=== PATIENT | male | born 1945 | race Caucasian/White ===

== ENCOUNTER 2018-08-07 16:21 | Inpatient (IN) | payer MEDICARE ==
[~2018-08-07 16:21] MED LIST: Iopamidol 370 76% 100 ML VIAL ONE; Iopamidol 370 76% 50 ML VIAL FS ONE
[2018-08-07] MEDS ORDERED: TICAGRELOR 90 MG TABLET PO SCH (19:04)
[2018-08-07] MEDS ORDERED: Morphine 4 MG/ML VIAL SLOW IVP PRN ×2 (19:04→19:11)
[2018-08-07] MEDS ORDERED: Nitroglycerin 0.4 MG TAB (25 Tab Bottle) SL PRN (19:04)
[2018-08-07] MEDS: Sodium Chloride 0.9% 1,000 ML IV SCH (19:33)
[2018-08-07 19:59] VITALS: BMI 23.8
[2018-08-07] MEDS ORDERED: Carvedilol 3.125 MG TAB PO SCH (21:00)
[2018-08-07] MEDS: Acetaminophen 325 MG TAB PO PRN (22:29)
[2018-08-07] MEDS: TICAGRELOR 90 MG TABLET PO SCH (22:29)
[2018-08-07] MEDS: Finasteride 5 MG TAB PO SCH (22:29)
[2018-08-07] MEDS: Atorvastatin Calcium 40 MG TAB PO SCH (22:30)
[2018-08-07] MEDS ORDERED: Amlodipine 5 MG TAB PO SCH (22:30)
[2018-08-07] MEDS ORDERED: Nitroglycerin 50 MG/250 ML BOT 250 ML IVPB SCH (22:30)
[2018-08-07] MEDS: Lisinopril/Hydrochlorothiazide 20 mg/12.5 mg Tablet PO SCH (22:31)
[2018-08-08] MEDS: Acetaminophen 325 MG TAB PO PRN (04:45)
[2018-08-08 05:05] LABS: #Eosinphils 0.1 thou/uL (0.0-0.7); #Lymphocytes 0.7 thou/uL (1.20-3.40); #Monocytes 0.7 thou/uL (0.11-0.59); #Neutrophils 6.1 thou/uL (1.40-6.50); %Basophils 0.3 % (0.0-1.0); %Eosinophils 1.1 % (0.0-10.0); %Lymphocytes 9.6 % (21.0-51.0); %Monocytes 9.5 % (0.0-10.0); %Neutrophils 79.5 % (42.0-75.0); Hemoglobin 12.1 g/dL (14.0-18.0); Mean Corpuscular HGB CONC 34.4 g/dL (32.0-36.0); Mean Corpuscular Hemoglobin 31.9 pg (27.0-31.0); Mean Corpuscular Volume 92.8 fL (78.0-98.0); Mean Platelet Volume 8.5 fL (7.4-10.4); Platelet Count 172 thou/uL (130-400); RBC Distribution Width 13.4 % (11.5-14.5); Red Blood Cell (RBC) Count 3.79 mill/uL (4.70-6.10); White Blood Cell (WBC) Count 7.7 thou/uL (4.8-10.8)
[2018-08-08 05:28] LABS: ALT (SGPT) 31 U/L (8-55); AST (SGOT) 100 U/L (5-34); Albumin 3.4 g/dL (3.4-4.8); Alkaline Phosphatase 69 U/L (40-150); Anion Gap 10 mmol/L (10-20); BUN (Urea Nitrogen) 19 mg/dL (8.4-25.7); Bilirubin, Total 0.5 mg/dL (0.2-1.2); Calc. Creatinine Clearance 60 mL/min (70-130); Calcium 8.8 mg/dL (7.8-10.44); Carbon Dioxide 26 mmol/L (23-31); Chloride 107 mmol/L (98-107); Estimated GFR-MDRD 68; Globulin 2.1 g/dL (2.4-3.5); Glucose 125 mg/dL (83-110); Potassium 3.4 mmol/L (3.5-5.1); Protein, Total 5.5 g/dL (5.8-8.1); Sodium 140 mmol/L (136-145)
[2018-08-08] MEDS: Carvedilol 6.25 MG TAB PO SCH ×2 (08:47→21:24)
[2018-08-08] MEDS: TICAGRELOR 90 MG TABLET PO SCH ×2 (08:48→21:24)
[2018-08-08] MEDS: Lisinopril/Hydrochlorothiazide 20 mg/12.5 mg Tablet PO SCH ×2 (08:48→21:25)
[2018-08-08] MEDS: Magnesium Oxide 400 MG TAB PO SCH (08:49)
--- NOTE | 2018-08-08 08:58 | PRG ---
DATE OF SERVICE: 08/08/2018 SUBJECTIVE: Mr. Mir is feeling better. Not having any chest pain. OBJECTIVE: VITAL SIGNS: Blood pressure is 169/84, pulse 54 and regular. LUNGS: Clear. CARDIAC: Normal S1. Normal S2. ABDOMEN: Soft and nontender. EXTREMITIES: No edema. ASSESSMENT: 1. Status post myocardial infarction involving the right coronary artery including the ostium. 2. Hypertension. 3. Paroxysmal atrial fibrillation with no recent episodes. PLAN: 1. Increase carvedilol. 2. TRI inhibitors. 3. Statin. 4. Aspirin and Brilinta. 5. We will hold off on Xarelto for now. 6. Add amlodipine as well, helps control blood pressure. Job ID: [id number]
[2018-08-08] MEDS ORDERED: Carvedilol 6.25 MG TAB PO SCH (09:00)
[2018-08-08] MEDS: Amlodipine 5 MG TAB PO SCH (09:27)
[2018-08-08 10:04] LABS: Troponin I 44.604 ng/mL (< 0.028)
[2018-08-08] MEDS: Mometasone/Formoterol 120 PUFF INHALER INH SCH ×2 (11:44→18:56)
[2018-08-08] MEDS ORDERED: Potassium Chloride 20 MEQ TAB PO SCH (12:00)
--- NOTE | 2018-08-08 12:20 | HP ---
INDICATION FOR ADMISSION: A 73-year-old gentleman with acute inferior myocardial infarction. His other diagnoses include intermittent atrial fibrillation, hypertension, benign prostatic hypertrophy, and hyperlipidemia. HISTORY OF PRESENT ILLNESS: This is a very pleasant 73-year-old gentleman, who is followed by Dr. Vicente for several years. This afternoon around 3 o'clock he started experiencing chest discomfort after he ate some English food, he went home, the pain got worse. He then presented to the emergency room. EKG showed acute inferior changes compatible with acute inferior ST-segment elevation myocardial infarction. He was then transferred to our facility. When he arrived here, he was taken immediately to the cardiac offset label rewinder. He was prepped and draped in sterile fashion. Using a radial artery approach, the patient had been on Xarelto , we were able to place a 6-Malawian introducer sheath into the right radial artery. Using a #4-Malawian JL3.5 catheter to the left main coronary artery and also into the right coronary artery, he was found to have a subtotal occlusion of a right coronary artery. Then, he underwent angioplasty and stent placement into very high-risk vessel due to calcifications and also ostial stenosis with subtotal stenosis in the first 10 mm of the right coronary artery with also a more serial stenosis of about 15 mm beyond this of about 90% and again another lesion further down in the mid right coronary artery about 50% that was not intervened upon. Overall, he tolerated the procedure relatively well. EKG did improve. We admitted him to the Intensive Care Unit. PAST MEDICAL HISTORY: As noted above for hypertension, hypercholesterolemia, intermittent atrial fibrillation. He has had some type of cancer surgery. He has benign prostatic hypertrophy. ALLERGIES: PENICILLIN. MEDICATIONS: Prior to admission include; 1. CoQ10. 2. Vitamin C. 3. Krill oil. 4. Potassium chloride. 5. Advair Diskus powder for inhalation. 6. Magnesium 200 mg two times a day. 7. Calcium. 8. Ascorbic acid. 9. Flomax 0.4 mg 24-hour capsules, one tablet half an hour following the same meal each day. 10. Centrum Silver vitamins. 11. Flonase nasal spray. 12. Glucosamine chondroitin. 13. He takes Citrucel. 14. Zinc. 15. Finasteride. 16. Nitroglycerin p.r.n. translingual. 17. Xarelto 20 mg q.p.m. 18. Atorvastatin one tablet a day, 20 mg. He also was on 40 mg tablet. 19. Verapamil 180 mg capsule once a day. 20. Lisinopril/hydrochlorothiazide 20/12.5 one b.i.d. REVIEW OF SYSTEMS: He mainly complained of the discomfort in his chest after eating, otherwise 12-point review of systems is unremarkable. He occasionally has some dizziness, recent memory loss, but he denied any pulmonary complaints, GI complaints, or complaints, otherwise except for his prostate problems. PHYSICAL EXAMINATION: VITAL SIGNS: Heart rate 65, blood pressure 142/84, and respiratory rate is about 12 to 14. HEENT: Unremarkable. CHEST: Clear to auscultation. CARDIAC: Reveals regular rate and rhythm. ABDOMEN: Unremarkable. EXTREMITIES: Show no clubbing, cyanosis, or edema. NEUROLOGIC: The patient was intact fully. Did not appear to have any focal motor deficits. LABORATORY DATA: EKG showed acute inferior myocardial infarction. Creatinine was 1.09. Hemoglobin was 13.4. Troponin I was 0.081. We will repeat these in the next couple of hours. IMPRESSION: Acute inferior myocardial infarction, ST segment elevation. The patient was taken into the cardiac offset label rewinder. He did have a successful angioplasty and stent placement for a very difficult lesion, but appeared to be doing quite well. The EKG did improve and hopefully, we will have minimal damage to the inferior wall. The vessel was slightly opened, there was still some flow down the vessel with subtotal in the proximal area. It was felt best to at least try to attempt this subtotal stenosis all the way back to the ostium to the aorta and this was performed without any obvious dissections. The patient was doing well. There was no embolization in the procedure. The patient will be admitted to the intensive care unit and further care of the patient will be by Dr. Vicente when he visits with the patient tomorrow. We did start the patient on Brilinta. He will be continued on aspirin and most likely in the next few days, we will resume also his Xarelto, but at this time he remained in sinus rhythm and there was no indication that the patient has had any recent atrial fibrillation. Job ID: [id number] [facility]
--- NOTE | 2018-08-08 14:30 | EKG ---
Test Reason : SP CATHLAB Blood Pressure : / mmHG Vent. Rate : 062 BPM Atrial Rate : 062 BPM P-R Int : 146 ms QRS Dur : 076 ms QT Int : 388 ms P-R-T Axes : 078 -11 011 degrees QTc Int : 393 ms Normal sinus rhythm Possible Inferior infarct , age undetermined Low voltage QRS Abnormal ECG Confirmed by SAPNA WALSH, DR. Kelly ([id number]) on 08/08/2018 2:30:46 PM Referred By: CHAY Confirmed By:DR. Robin ALEJO MD
--- NOTE | 2018-08-08 14:31 | EKG ---
Test Reason : Blood Pressure : / mmHG Vent. Rate : 062 BPM Atrial Rate : 062 BPM P-R Int : 142 ms QRS Dur : 088 ms QT Int : 392 ms P-R-T Axes : 079 -04 035 degrees QTc Int : 397 ms Normal sinus rhythm Minimal voltage criteria for LVH, may be normal variant Cannot rule out Inferior infarct (cited on or before 07-AUG-2018) Abnormal ECG When compared with ECG of 07-AUG-2018 19:22, (Unconfirmed) Nonspecific T wave abnormality now evident in Lateral leads Confirmed by SAPNA WALSH, DR. Kelly (4) on 08/08/2018 2:31:07 PM Referred By: NANCY Confirmed By:DR. Robin ALEJO MD
[2018-08-08] MEDS: Sodium Chloride 0.9% 1,000 ML IV SCH (15:58)
[2018-08-08] MEDS: Tamsulosin HCl 0.4 MG CAP PO SCH (17:52)
[2018-08-08] MEDS: Finasteride 5 MG TAB PO SCH (21:24)
[2018-08-08] MEDS: Atorvastatin Calcium 40 MG TAB PO SCH (21:25)
--- NOTE | 2018-08-09 03:14 | CON ---
DATE OF CONSULTATION: 08/08/2018 HISTORY OF PRESENT ILLNESS: Mr. Mir is a 73-year-old gentleman, followed by Dr. Vicente for atrial fibrillation and hypertension. He presented in the afternoon with chest discomfort after going to a [employer] food restaurant. He went home and told his that it did not get better in 4 minutes and they were coming to the emergency room. They came over here. He was found to have an ST elevation on EKG in his inferior leads. He subsequently has undergone cardiac catheterization. His right coronary was angioplastied and stented. There is dense calcification in the lesion. He has had no chest pain since. PAST MEDICAL HISTORY: Remarkable for lipid disorder, cancer in the past, and BPH. ALLERGIES: HE REPORTS SOME PENICILLIN ALLERGY. MEDICATIONS: Have been reviewed. FAMILY HISTORY: Not obtained SOCIAL HISTORY: Non contributory. REVIEW OF SYSTEMS: 10 point review of systems completed, otherwise negative. PHYSICAL EXAMINATION: GENERAL: He is in no distress. VITAL SIGNS: Heart rate is 98, respiratory rate is 16, pulse is 83, oximetry is 94% on room air. GENERAL: Appears younger in his age. HEENT: His pupils are equal. Sclerae are anicteric. NECK: Supple. LUNGS: Clear. HEART: Regular rhythm. S1 and S2 normal. No gallop is heard. ABDOMEN: Soft and nontender. EXTREMITIES: Without clubbing, cyanosis, or edema. NEUROLOGIC: Nonfocal. IMPRESSION: Status post inferior myocardial infarction, status post stenting. He appears stable at this time. PLAN: We will follow him while he is in the Critical Care Unit and Intermediate Care unit. This is a 70 minute consult, with greater than 50% of time spent on unit in coordination of care. Job ID: [id number] [facility]
[2018-08-09] MEDS: Mometasone/Formoterol 120 PUFF INHALER INH SCH ×2 (07:17→18:06)
[2018-08-09] MEDS: Lisinopril/Hydrochlorothiazide 20 mg/12.5 mg Tablet PO SCH ×2 (08:36→20:21)
[2018-08-09] MEDS: Carvedilol 6.25 MG TAB PO SCH ×2 (08:37→20:19)
[2018-08-09] MEDS: Amlodipine 5 MG TAB PO SCH (08:37)
[2018-08-09] MEDS: Magnesium Oxide 400 MG TAB PO SCH (08:37)
[2018-08-09] MEDS: TICAGRELOR 90 MG TABLET PO SCH (08:37)
[2018-08-09] MEDS ORDERED: Furosemide 20 MG/2 ML VIAL SLOW IVP SCH (09:00)
[2018-08-09] MEDS: Enoxaparin Sodium 40 MG/0.4 ML SYRINGE SC SCH (09:26)
[2018-08-09] MEDS ORDERED: Spironolactone 25 MG TAB PO SCH (09:30)
[2018-08-09] MEDS: Famotidine 20 MG TAB PO SCH ×2 (10:12→20:18)
--- NOTE | 2018-08-09 10:56 | PRG ---
DATE OF SERVICE: 08/09/2018 SUBJECTIVE: Mr. Mir feels short of breath this morning, and we put on oxygen. He reports his oxygen saturations were now low. No chest pain. OBJECTIVE: VITAL SIGNS: His blood pressure was high, 179/102 is reported, but his nurse tells me the most recent was 130 systolic. LUNGS: Clear. CARDIAC: Normal S1. Normal S2. ABDOMEN: Soft, nontender. EXTREMITIES: No edema. ASSESSMENT: 1. Status post myocardial infarction with troponin rise to 44. 2. Status post percutaneous coronary intervention. 3. Unclear what is causing the shortness of breath, could be volume overload. He did receive significant amounts of volume intravenously (normal saline) following the myocardial infarction. 4. Also, sometimes, the ticagrelor will cause shortness of breath. PLAN: 1. Give him a dose of Lasix IV. 2. Portable chest x-ray. 3. One dose of spironolactone. 4. Consider if the shortness of breath does not get better with Lasix, may take him off the ticagrelor and load him with Plavix. 5. We will give him enoxaparin. Job ID: [id number]
--- NOTE | 2018-08-09 11:14 | RAD ---
PORTABLE FRONTAL CHEST RADIOGRAPH: DATE: 08/09/2018. COMPARISON: 08/07/2018. History Dyspnea. FINDINGS: There is no pneumothorax, pleural fluid, focal consolidation, or alveolar edema. Heart and mediastin al contours are grossly unremarkable. There is atherosclerotic calcification in the aortic arch. IMPRESSION: No acute findings - stable appearance of the chest. POS: YANCI
[2018-08-09] MEDS ORDERED: Clopidogrel Bisulfate 300 MG TAB PO SCH (16:30)
[2018-08-09] MEDS: Tamsulosin HCl 0.4 MG CAP PO SCH (17:07)
[2018-08-09] MEDS: Finasteride 5 MG TAB PO SCH (20:19)
[2018-08-09] MEDS ORDERED: Atorvastatin Calcium 40 MG TAB PO SCH (21:00)
[2018-08-10 05:30] LABS: Anion Gap 13 mmol/L (10-20); BUN (Urea Nitrogen) 20 mg/dL (8.4-25.7); Calc. Creatinine Clearance 52 mL/min (70-130); Calcium 9.2 mg/dL (7.8-10.44); Carbon Dioxide 28 mmol/L (23-31); Chloride 101 mmol/L (98-107); Estimated GFR-MDRD 57; Glucose 98 mg/dL (83-110); Potassium 3.3 mmol/L (3.5-5.1); Sodium 139 mmol/L (136-145)
[2018-08-10] MEDS: Mometasone/Formoterol 120 PUFF INHALER INH SCH (06:36)
[2018-08-10] MEDS: Lisinopril/Hydrochlorothiazide 20 mg/12.5 mg Tablet PO SCH (08:40)
[2018-08-10] MEDS: Amlodipine 5 MG TAB PO SCH (08:41)
[2018-08-10] MEDS: Enoxaparin Sodium 40 MG/0.4 ML SYRINGE SC SCH (08:41)
[2018-08-10] MEDS: Magnesium Oxide 400 MG TAB PO SCH (08:41)
[2018-08-10] MEDS: Carvedilol 6.25 MG TAB PO SCH (08:41)
[2018-08-10] MEDS: Famotidine 20 MG TAB PO SCH (08:41)
[2018-08-10] MEDS ORDERED: Clopidogrel Bisulfate 75 MG TAB PO SCH (09:00)
[2018-08-10 15:45] VITALS: BP 96/65; TEMP 97.9
--- NOTE | 2018-08-10 19:53 | DIS ---
DATE OF ADMISSION: 08/07/2018 DATE OF DISCHARGE: 08/10/2018 DISCHARGE DIAGNOSES: 1. Acute inferior ST-elevation myocardial infarction, placement of bare-metal stent in the ostium to proximal right coronary artery. 2. Hypertension. 3. Hypercholesterolemia. 4. Paroxysmal atrial fibrillation. 5. Benign prostatic hypertrophy. 6. Shortness of breath, probably secondary to Brilinta. DISCHARGE MEDICATIONS: 1. Asprin 81 daily. 2. Plavix 75 q.a.m. 3. Atorvastatin 40 daily. 4. Pepcid 20 mg b.i.d. 5. Amlodipine 2.5 mg daily. 6. Carvedilol 6.25 b.i.d. DISCHARGE DISPOSITION: Instructed to follow with Dr. Vicente. HOSPITAL COURSE: Mr. Mir presented with chest discomfort. He had been on Xarelto for paroxymal atrial fibrillation. He therefore underwent radial catheterization. He was found to have severe disease of the right coronary artery. He underwent angioplasty and stent placement. This was felt to be high risk due to calcifications. Overall, he tolerated the procedure well. He did have problems with shortness of breath; however, when he was switched from Brilinta to Plavix, this seemed to subside. He remained in sinus rhythm throughout his hospital stay. Job ID: [id number] [facility]
[2018-08-11] MEDS ORDERED: Amlodipine 5 MG TAB PO SCH (09:00)
--- NOTE | 2018-08-12 10:40 | PRG ---
DATE OF SERVICE: 08/09/2018 SUBJECTIVE: Mr. Mir had some recurrent shortness of breath relatively mild this afternoon. The chest x-ray did not show pulmonary vascular congestion. Some response to the Lasix, but it did not make him feel less short of breath. He is up walking in halls now. Feels fine now. OBJECTIVE: VITAL SIGNS: Most recent blood pressure 122/84, pulse is 75. LUNGS: Clear. CARDIAC: Normal S1. Normal S2. ASSESSMENT: 1. Shortness of breath of uncertain etiology. This may be related to the ticagrelor which can cause shortness of breath. 2. He has no recurrent chest pressure. PLAN: 1. We will stop ticagrelor. 2. Continue aspirin. 3. Load with Plavix. 4. Ticagrelor held for about 9 hours expect these episodes to improve. 5. Hypertension is controlled. Job ID: [id number]
== END 2018-08-10 16:49 | disposition home or self-care (01) | DRG 247 ==
LOC: PACU-TCU 16:25 → UNDOADMIN 16:25 → PACU-TCU 16:28 → CCU 19:04 → 2SE 08-08 15:53
PROVIDERS: ADMIT Internal Medicine Cardiovascular Disease; ATTEND Internal Medicine Cardiovascular Disease
PROC: 027034Z Dilation of Coronary Artery, One Artery with Drug-eluting Intraluminal Device, Percutaneous Approach (ICD-10-PCS; principal; 2018-08-07)
PROC: 4A023N7 Measurement of Cardiac Sampling and Pressure, Left Heart, Percutaneous Approach (ICD-10-PCS; 2018-08-07)
PROC: B2111ZZ Fluoroscopy of Multiple Coronary Arteries using Low Osmolar Contrast (ICD-10-PCS; 2018-08-07)
PROC: B2151ZZ Fluoroscopy of Left Heart using Low Osmolar Contrast (ICD-10-PCS; 2018-08-07)
DX: I21.3 ST elevation (STEMI) myocardial infarction of unspecified site (principal); I10 Essential (primary) hypertension; N40.0 Benign prostatic hyperplasia without lower urinary tract symptoms; E78.5 Hyperlipidemia, unspecified; Z88.0 Allergy status to penicillin; Z79.899 Other long term (current) drug therapy; Z85.9 Personal history of malignant neoplasm, unspecified; Z79.51 Long term (current) use of inhaled steroids; Z79.01 Long term (current) use of anticoagulants; I48.0 Paroxysmal atrial fibrillation; T45.525A Adverse effect of antithrombotic drugs, initial encounter
CPT/HCPCS: 36415; 71045; 80048; 80053; 84484; 85025; 85347; 92928; 93005; 93010; 93458; 93798; C1725; C1769; C1874; C1887; C9600; J1650; J1940; J2270

== ENCOUNTER 2019-03-28 11:01 | Outpatient (CLI) | payer MEDICARE ==
--- NOTE | 2019-03-28 15:16 | CT ---
CT OF THE ABDOMEN AND PELVIS WITH IV CONTRAST: INDICATION: History of bilateral pelvic pain and a history of colon cancer status post resection in 2010. CONTRAST: 70 cc of Isovue 370. COMPARISON: Prior abdominal and pelvic CT from 12/01/2009. FINDINGS: ABDOMEN: The lung bases are clear. No focal hepatic lesion is identified. The pancreas, adrenal glands, and kidneys reveal no acute abn ormality. There are bilateral renal cysts. There is a tiny 1-2 mm calculus within the superior pole of the left kidney which is stable. An additional 1-2 mm calculus is seen within the left mid kidney. There are bilateral extrarenal pel ves. No hydronephrosis is evident. The spleen is normal-appearing. No free fluid or enlarged lymph nodes are evident. There is mild aneurysmal dilatation of the infrarenal abdominal aorta now measuring 3.2 cm and previo usly measured 2.5 cm. PELVIS: There are scattered diverticula involving the colon. There is some nonspecific edema seen within the left lower quadrant of the abdomen on image 66 of series 2. There is no adjacent wall thickening in volving the colon. There is a moderate amount of retained stool within the colon. The appendix is n ormal in the right lower quadrant. The small bowel appears of normal caliber. No free fluid is evid ent. No acute osseous abnormality is evident. IMPRESSION: 1. A small amount of nonspecific fluid is seen within the lower left pericolonic gutter. No drainab le fluid collection is evident. 2. Colonic diverticulosis without evidence of active diverticulitis. 3. Moderate amount of retained stool within the colon. 4. 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 5. Other chronic findings. POS: [facility]
== END 2019-03-28 11:02 | disposition home or self-care (01) ==
LOC: BICCT 11:01
PROVIDERS: ATTEND Family Medicine
DX: R10.32 Left lower quadrant pain (principal); R10.31 Right lower quadrant pain; K57.30 Diverticulosis of large intestine without perforation or abscess without bleeding; I71.4 Abdominal aortic aneurysm, without rupture
CPT/HCPCS: 74177; 82565

== ENCOUNTER 2021-02-12 01:51 | Inpatient (IN) | payer MEDICARE ==
[2021-02-12 02:22] VITALS: BMI 24.5
[2021-02-12 04:08] LABS: SARS-CoV-2 NAA Rapid Test Not Detected (NotDetected)
[2021-02-12] MEDS ORDERED: HYDROcodone/Acetaminophen 5/325 mg Tablet PO PRN (04:23)
[2021-02-12] MEDS ORDERED: Guaifenesin DM 100-10/5 ML UDCUP PO PRN (04:23)
[2021-02-12] MEDS ORDERED: Acetaminophen 325 MG TAB PO PRN (04:23)
[2021-02-12] MEDS ORDERED: Bisacodyl 5 MG TAB PO PRN (04:23)
[2021-02-12] MEDS ORDERED: Ondansetron PF 4 MG/2 ML Vial IVP PRN (04:23)
[2021-02-12] MEDS ORDERED: Aspirin 325 MG TAB PO SCH (04:30)
[2021-02-12] MEDS ORDERED: Potassium Chloride 10 MEQ in Dextrose 5%-Lactated Ringers 1,000 ML IV SCH (04:45)
[2021-02-12] MEDS ORDERED: Albuterol 200 PUFF (6.7GM INHALER) INH PRN (05:30)
[2021-02-12 05:34] LABS: Anion Gap 10 mmol/L (10-20); BUN (Urea Nitrogen) 21 mg/dL (8.4-25.7); Calc. Creatinine Clearance 45 mL/min (70-130); Calcium 8.7 mg/dL (7.8-10.44); Carbon Dioxide 30 mmol/L (23-31); Chloride 107 mmol/L (98-107); Glucose 94 mg/dL (83-110); Potassium 3.2 mmol/L (3.5-5.1); Sodium 144 mmol/L (136-145)
[2021-02-12 05:41] LABS: Troponin I 0.093 ng/mL (< 0.028)
[2021-02-12 06:22] LABS: Creatinine, Urine 197.75 mg/dL (63-166)
[2021-02-12] MEDS: Ascorbic Acid 500 mg Chewable Tablet PO SCH ×2 (08:08→20:53)
[2021-02-12] MEDS: Potassium Chloride 10 MEQ TAB PO SCH ×2 (08:08→20:54)
[2021-02-12] MEDS ORDERED: Aspirin Chewable 81 MG TAB PO SCH (09:00)
[2021-02-12] MEDS ORDERED: Potassium Chloride 20 MEQ TAB PO SCH (12:45)
[2021-02-12 13:44] LABS: Bacteria/HPF None Seen HPF (None Seen); Bilirubin Negative (Negative); Blood, Urine Negative (Negative); Clarity Clear (Clear); Glucose, Urine (Dipstick) Normal (Negative); Ketone, Urine Negative (Negative); Leukocyte 25 Leu/uL (Negative); Nitrite Negative (Negative); Protein, Urine (Dipstick) Negative (Neg-Trace); RBC/HPF 0-3 HPF (0-3); Specific Gravity, Urine 1.018 (1.002-1.036); Squamous Epithelial None Seen HPF (0-3); Urobilinogen Normal mg/dL (Less than 2); pH, Urine 7.5 (5.0-9.0)
[2021-02-12] MEDS ORDERED: Chloraseptic Spray 180 ml Bottle PO PRN (13:57)
[2021-02-12] MEDS: Mometasone 100 MCG/Formoterol 5 MCG 120 PUFF INHALER INH SCH (18:39)
[2021-02-12] MEDS ORDERED: Ketotifen Fumarate 0.025% Ophth Soln 5 ml Bottle EA EYE PRN (20:06)
[2021-02-12] MEDS ORDERED: Magnesium Oxide 400 MG TAB PO SCH (21:00)
[2021-02-12] MEDS ORDERED: SALMETEROL INH SCH (21:00)
[2021-02-12] MEDS ORDERED: Finasteride 5 MG TAB PO SCH (21:00)
[2021-02-12] MEDS ORDERED: Fluticasone Propionate Nasal Spray 16 gm Bottle NASAL SCH (21:00)
[2021-02-12] MEDS ORDERED: [UNRECOGNIZED DRUG - REMARK] PO SCH (21:00)
[2021-02-12] MEDS ORDERED: Clopidogrel Bisulfate 75 MG TAB PO SCH (21:00)
[2021-02-12] MEDS ORDERED: FLUTICASONE INH SCH (21:00)
[2021-02-12] MEDS ORDERED: Famotidine 20 MG TAB PO SCH (21:00)
[2021-02-12] MEDS ORDERED: Cholecalciferol 1,000 UNITS (25 MCG) TAB PO SCH (21:00)
[2021-02-12] MEDS ORDERED: Amlodipine 5 MG TAB PO SCH (21:00)
[2021-02-12] MEDS ORDERED: Multivitamin W/ Minerals 1 TAB PO SCH (21:00)
[2021-02-12] MEDS ORDERED: Tamsulosin HCl 0.4 MG CAP PO SCH (21:00)
[2021-02-12] MEDS ORDERED: Atorvastatin Calcium 40 MG TAB PO SCH (21:00)
[2021-02-12] MEDS ORDERED: Ezetimibe 10 MG TAB PO SCH (21:00)
[2021-02-12] MEDS ORDERED: Rivaroxaban 10 MG TAB PO SCH (21:00)
[2021-02-13 05:22] LABS: #Eosinphils 0.3 thou/uL (0.0-0.7); #Lymphocytes 1.1 thou/uL (1.20-3.40); #Monocytes 0.7 thou/uL (0.11-0.59); #Neutrophils 3.6 thou/uL (1.40-6.50); %Basophils 0.4 % (0.0-1.0); %Eosinophils 4.6 % (0.0-10.0); %Lymphocytes 19.3 % (21.0-51.0); %Monocytes 12.4 % (0.0-10.0); %Neutrophils 63.3 % (42.0-75.0); Hemoglobin 12.2 g/dL (14.0-18.0); Mean Corpuscular Hemoglobin 31.8 pg (27.0-31.0); Mean Corpuscular Volume 93.6 fL (78.0-98.0); Mean Platelet Volume 8.2 fL (7.4-10.4); Platelet Count 126 thou/uL (130-400); Red Blood Cell (RBC) Count 3.83 mill/uL (4.70-6.10); White Blood Cell (WBC) Count 5.7 thou/uL (4.8-10.8)
[2021-02-13 05:55] LABS: Anion Gap 9 mmol/L (10-20); BUN (Urea Nitrogen) 18 mg/dL (8.4-25.7); Calc. Creatinine Clearance 56 mL/min (70-130); Calcium 8.5 mg/dL (7.8-10.44); Carbon Dioxide 28 mmol/L (23-31); Cardiac Risk 2.8 (Less than 4.5); Chloride 109 mmol/L (98-107); Cholesterol 101 mg/dl (< 200 Desired); Glucose 102 mg/dL (83-110); HDL Cholesterol 36 mg/dL (>60 Neg Risk); LDL Cholesterol, Calculated 53 mg/dL; Potassium 3.6 mmol/L (3.5-5.1); Sodium 142 mmol/L (136-145); Triglycerides 62 mg/dL (Less than 150)
[2021-02-13] MEDS: Mometasone 100 MCG/Formoterol 5 MCG 120 PUFF INHALER INH SCH (07:31)
[2021-02-13] MEDS: Ascorbic Acid 500 mg Chewable Tablet PO SCH (08:42)
[2021-02-13] MEDS: Potassium Chloride 10 MEQ TAB PO SCH (08:42)
[2021-02-13] MEDS ORDERED: Regadenoson 0.4 MG/5 ML SYRINGE ONE (09:03)
[2021-02-13 16:50] VITALS: BP 140/65; TEMP 98
[2021-02-13] MEDS ORDERED: Rivaroxaban 10 MG TAB PO SCH (18:00)
[2021-02-14] MEDS ORDERED: Lisinopril 10 MG TAB PO SCH ×2 (09:00)
== END 2021-02-13 17:39 | disposition home or self-care (01) | DRG 683 ==
LOC: 2SW 01:51 → OBSVTOIN 04:23
PROVIDERS: ADMIT Internal Medicine; ATTEND Internal Medicine
DX: N17.9 Acute kidney failure, unspecified (principal); E87.0 Hyperosmolality and hypernatremia; Z20.822 Contact with and (suspected) exposure to COVID-19; J44.9 Chronic obstructive pulmonary disease, unspecified; R77.8 Other specified abnormalities of plasma proteins; E86.9 Volume depletion, unspecified; I10 Essential (primary) hypertension; N40.0 Benign prostatic hyperplasia without lower urinary tract symptoms; I95.2 Hypotension due to drugs; E78.5 Hyperlipidemia, unspecified; E87.6 Hypokalemia; I48.0 Paroxysmal atrial fibrillation; T50.2X5A Adverse effect of carbonic-anhydrase inhibitors, benzothiadiazides and other diuretics, initial encounter; T46.5X5A Adverse effect of other antihypertensive drugs, initial encounter; I25.10 Atherosclerotic heart disease of native coronary artery without angina pectoris; Z85.038 Personal history of other malignant neoplasm of large intestine; Z90.49 Acquired absence of other specified parts of digestive tract; Z88.0 Allergy status to penicillin; Z79.899 Other long term (current) drug therapy; Z79.51 Long term (current) use of inhaled steroids; Z79.02 Long term (current) use of antithrombotics/antiplatelets; Z79.01 Long term (current) use of anticoagulants; I25.2 Old myocardial infarction; Z95.5 Presence of coronary angioplasty implant and graft
CPT/HCPCS: 36415; 78452; 80048; 80061; 81001; 82570; 84156; 84300; 84443; 84484; 85025; 93005; 93010; 93017; 93306; A9500; J2785; J3480; U0002; U0005

== ENCOUNTER 2021-12-31 16:33 | Inpatient (IN) | payer MEDICARE ==
[2021-12-31] MEDS ORDERED: Amiodarone 150 MG/3 ML VIAL ONE ×2 (16:49→16:54)
[2021-12-31 16:57] LABS: #Eosinphils 0.1 thou/uL (0.0-0.7); #Lymphocytes 1.3 thou/uL (1.20-3.40); #Monocytes 0.5 thou/uL (0.11-0.59); #Neutrophils 3.6 thou/uL (1.40-6.50); %Basophils 0.6 % (0.0-1.0); %Eosinophils 2.1 % (0.0-10.0); %Lymphocytes 22.7 % (21.0-51.0); %Monocytes 9.6 % (0.0-10.0); %Neutrophils 64.9 % (42.0-75.0); Hemoglobin 16.4 g/dL (14.0-18.0); Mean Corpuscular HGB CONC 34.1 g/dL (32.0-36.0); Mean Corpuscular Hemoglobin 32.2 pg (27.0-31.0); Mean Corpuscular Volume 94.7 fL (78.0-98.0); Mean Platelet Volume 8.1 fL (7.4-10.4); Platelet Count 150 thou/uL (130-400); RBC Distribution Width 13.7 % (11.5-14.5); Red Blood Cell (RBC) Count 5.08 mill/uL (4.70-6.10); White Blood Cell (WBC) Count 5.5 thou/uL (4.8-10.8)
[2021-12-31] MEDS ORDERED: Amiodarone 150 MG, Admixture Fee 1 EACH in Dextrose 5% in Water 100 ML IVPB SCH (17:00)
[2021-12-31] MEDS ORDERED: Amiodarone 450 MG, Admixture Fee 1 EACH in Dextrose 5% in Water 250 ML IVPB SCH (17:00)
[2021-12-31] MEDS ORDERED: Ondansetron PF 4 MG/2 ML Vial ONE (17:05)
[2021-12-31 17:19] LABS: INR-International Normal Ratio 1.8; Prothrombin Time 20.9 sec (12.0-14.7)
[2021-12-31 17:20] LABS: ALT (SGPT) 34 U/L (8-55); AST (SGOT) 26 U/L (5-34); Albumin 4.1 g/dL (3.4-4.8); Alkaline Phosphatase 69 U/L (40-110); Anion Gap 16 mmol/L (10-20); BUN (Urea Nitrogen) 30 mg/dL (8.4-25.7); Bilirubin, Total 0.7 mg/dL (0.2-1.2); Calc. Creatinine Clearance 0 mL/min (70-130); Calcium 9.1 mg/dL (7.8-10.44); Carbon Dioxide 24 mmol/L (23-31); Chloride 104 mmol/L (98-107); Globulin 2.7 g/dL (2.4-3.5); Glucose 118 mg/dL (83-110); Lipase 22 U/L (8-78); Potassium 3.4 mmol/L (3.5-5.1); Protein, Total 6.8 g/dL (5.8-8.1); Sodium 141 mmol/L (136-145)
[2021-12-31 17:42] LABS: CKMB 1.7 ng/mL (0-6.6)
[2021-12-31 18:28] LABS: Magnesium 1.8 mg/dL (1.6-2.6)
[2021-12-31] MEDS ORDERED: Aspirin Chewable 81 MG TAB ONE (18:42)
[2021-12-31] MEDS ORDERED: Rivaroxaban 15 MG TAB PO SCH (18:45)
[2021-12-31] MEDS ORDERED: Rivaroxaban 10 MG TAB PO SCH (18:45)
[2021-12-31] MEDS ORDERED: Ondansetron PF 4 MG/2 ML Vial IVP PRN (18:47)
[2021-12-31] MEDS ORDERED: Acetaminophen 325 MG TAB PO PRN (18:47)
[2021-12-31] MEDS ORDERED: Ondansetron ODT 4 MG TAB PO PRN (18:47)
[2021-12-31] MEDS ORDERED: Magnesium 2 GM/50 ML(in water) 2 GM in Premix Bag 1 BAG IVPB SCH ×2 (19:23→21:15)
[2021-12-31] MEDS ORDERED: Potassium Chloride 20 MEQ TAB PO SCH (19:30)
[2021-12-31] MEDS ORDERED: Electrolyte Replacement Protocol 1 EACH FS SCH (19:45)
[2021-12-31] MEDS ORDERED: Aspirin 81 mg Enteric Coated Tablet PO SCH (21:00)
[2021-12-31] MEDS ORDERED: Carvedilol 6.25 MG TAB PO SCH (21:00)
[2021-12-31] MEDS ORDERED: Electrolyte Replacement Protocol 1 EACH FS PRN (21:15)
[2021-12-31] MEDS: Famotidine 20 MG TAB PO SCH (21:38)
[2021-12-31] MEDS: Atorvastatin Calcium 40 MG TAB PO SCH (21:38)
[2021-12-31] MEDS: Clopidogrel Bisulfate 75 MG TAB PO SCH (21:39)
[2021-12-31] MEDS: Amlodipine 5 MG TAB PO SCH (21:41)
[2021-12-31] MEDS: Ascorbic Acid 500 mg Chewable Tablet PO SCH (21:41)
[2021-12-31] MEDS: Magnesium Oxide 400 MG TAB PO SCH (21:42)
[2021-12-31] MEDS: Lisinopril 10 MG TAB PO SCH (21:42)
[2021-12-31] MEDS: Tamsulosin HCl 0.4 MG CAP PO SCH (21:43)
[2021-12-31] MEDS: Potassium Chloride 10 MEQ TAB PO SCH (21:43)
[2021-12-31] MEDS: Finasteride 5 MG TAB PO SCH (21:43)
[2021-12-31] MEDS: Multivitamin W/ Minerals 1 TAB PO SCH (21:43)
[2021-12-31] MEDS: Sodium Chloride 0.9% 1,000 ML IV SCH (21:44)
[2021-12-31 22:10] LABS: SARS-CoV-2 NAA Rapid Test Not Detected (NotDetected)
[2021-12-31 22:53] VITALS: BMI 22.5
[2021-12-31 23:43] LABS: Troponin I 0.135 ng/mL (< 0.028)
[2022-01-01] MEDS: Fluticasone Propionate Nasal Spray 16 gm Bottle NASAL SCH ×2 (02:53→22:18)
[2022-01-01 06:38] LABS: Anion Gap 11 mmol/L (10-20); BUN (Urea Nitrogen) 25 mg/dL (8.4-25.7); Calc. Creatinine Clearance 60 mL/min (70-130); Calcium 7.9 mg/dL (7.8-10.44); Carbon Dioxide 21 mmol/L (23-31); Chloride 111 mmol/L (98-107); Glucose 84 mg/dL (83-110); Magnesium 2.1 mg/dL (1.6-2.6); Potassium 3.8 mmol/L (3.5-5.1); Sodium 139 mmol/L (136-145)
[2022-01-01 07:00] LABS: Band 23 % (5-11); Eosinophils 2 % (0-10); Hemoglobin 12.2 g/dL (14.0-18.0); Lymphocytes 16 % (21-51); MDiff Complete? YES; Mean Corpuscular HGB CONC 34.4 g/dL (32.0-36.0); Mean Corpuscular Volume 95.7 fL (78.0-98.0); Mean Platelet Volume 8.4 fL (7.4-10.4); Monocytes 12 % (0-10); Neutrophil 47 % (42-75); Platelet Count 108 thou/uL (130-400); Platelet Morphology Comment Appears Decreased; RBC Distribution Width 13.7 % (11.5-14.5); Red Blood Cell (RBC) Count 3.71 mill/uL (4.70-6.10); White Blood Cell (WBC) Count 5.1 thou/uL (4.8-10.8)
[2022-01-01] MEDS: Potassium Chloride 10 MEQ TAB PO SCH ×2 (09:37→21:25)
[2022-01-01] MEDS: Lisinopril 10 MG TAB PO SCH ×2 (09:37→21:32)
[2022-01-01] MEDS: Sodium Chloride 0.9% 1,000 ML IV SCH (09:37)
[2022-01-01] MEDS ORDERED: Amiodarone 200 MG TAB PO SCH (11:00)
[2022-01-01] MEDS ORDERED: Electrolyte Replacement Protocol FS PRN (13:30)
[2022-01-01] MEDS ORDERED: Rivaroxaban 15 MG TAB PO SCH (17:00)
[2022-01-01] MEDS: Ascorbic Acid 500 mg Chewable Tablet PO SCH ×2 (21:24→21:27)
[2022-01-01] MEDS: Magnesium Oxide 400 MG TAB PO SCH (21:27)
[2022-01-01] MEDS: Amiodarone 200 MG TAB PO SCH (21:28)
[2022-01-01] MEDS: Tamsulosin HCl 0.4 MG CAP PO SCH (21:28)
[2022-01-01] MEDS: Amlodipine 5 MG TAB PO SCH (21:29)
[2022-01-01] MEDS: Famotidine 20 MG TAB PO SCH (21:31)
[2022-01-01] MEDS: Atorvastatin Calcium 40 MG TAB PO SCH (21:31)
[2022-01-01] MEDS: Finasteride 5 MG TAB PO SCH (21:32)
[2022-01-01] MEDS: Clopidogrel Bisulfate 75 MG TAB PO SCH (21:35)
[2022-01-01] MEDS: Multivitamin W/ Minerals 1 TAB PO SCH (21:35)
[2022-01-02 05:10] LABS: #Eosinphils 0.2 thou/uL (0.0-0.7); #Lymphocytes 1.3 thou/uL (1.20-3.40); #Monocytes 0.7 thou/uL (0.11-0.59); #Neutrophils 3.3 thou/uL (1.40-6.50); %Eosinophils 3.8 % (0.0-10.0); %Lymphocytes 23.4 % (21.0-51.0); %Monocytes 12.9 % (0.0-10.0); %Neutrophils 59.9 % (42.0-75.0); Hemoglobin 12.5 g/dL (14.0-18.0); Mean Corpuscular HGB CONC 34.2 g/dL (32.0-36.0); Mean Corpuscular Hemoglobin 32.4 pg (27.0-31.0); Mean Corpuscular Volume 94.7 fL (78.0-98.0); Mean Platelet Volume 8.3 fL (7.4-10.4); Platelet Count 116 thou/uL (130-400); RBC Distribution Width 13.6 % (11.5-14.5); Red Blood Cell (RBC) Count 3.88 mill/uL (4.70-6.10); White Blood Cell (WBC) Count 5.5 thou/uL (4.8-10.8)
[2022-01-02 05:26] LABS: Anion Gap 10 mmol/L (10-20); BUN (Urea Nitrogen) 18 mg/dL (8.4-25.7); Calc. Creatinine Clearance 62 mL/min (70-130); Calcium 8.1 mg/dL (7.8-10.44); Carbon Dioxide 24 mmol/L (23-31); Chloride 110 mmol/L (98-107); Glucose 89 mg/dL (83-110); Potassium 3.6 mmol/L (3.5-5.1); Sodium 140 mmol/L (136-145)
[2022-01-02] MEDS: Potassium Chloride 10 MEQ TAB PO SCH (08:01)
[2022-01-02] MEDS: Lisinopril 10 MG TAB PO SCH (08:02)
[2022-01-02] MEDS: Amiodarone 200 MG TAB PO SCH (08:02)
[2022-01-02] MEDS: hydrALAZINE 20 MG/ML VIAL SLOW IVP PRN ×2 (10:07→16:59)
[2022-01-02] MEDS ORDERED: Potassium Chloride 20 MEQ TAB PO SCH (12:15)
[2022-01-02] MEDS ORDERED: Magnesium 2 GM/50 ML(in water) 2 GM in Premix Bag 1 BAG IVPB SCH (12:15)
[2022-01-02] MEDS ORDERED: hydrALAZINE 20 MG/ML VIAL SLOW IVP SCH (14:15)
[2022-01-02 15:35] VITALS: TEMP 98.5
[2022-01-02] MEDS ORDERED: Amiodarone 200 MG TAB PO SCH (16:45)
[2022-01-02] MEDS ORDERED: Rivaroxaban 10 MG TAB PO SCH (17:00)
[2022-01-02] MEDS ORDERED: Amlodipine 5 MG TAB PO SCH ×2 (17:10→21:00)
[2022-01-02 17:52] VITALS: BP 161/88
[2022-01-03] MEDS ORDERED: Amiodarone 200 MG TAB PO SCH (09:00)
== END 2022-01-02 18:50 | disposition home or self-care (01) | DRG 281 ==
LOC: ERS 16:33 → NEURO 18:19
PROVIDERS: ADMIT Internal Medicine; ATTEND Internal Medicine
DX: I48.0 Paroxysmal atrial fibrillation (principal); I21.A1 Myocardial infarction type 2; N17.9 Acute kidney failure, unspecified; I48.92 Unspecified atrial flutter; N40.0 Benign prostatic hyperplasia without lower urinary tract symptoms; E78.5 Hyperlipidemia, unspecified; A08.4 Viral intestinal infection, unspecified; I49.5 Sick sinus syndrome; I25.10 Atherosclerotic heart disease of native coronary artery without angina pectoris; J45.909 Unspecified asthma, uncomplicated; I10 Essential (primary) hypertension; E87.6 Hypokalemia; E86.0 Dehydration; Z20.822 Contact with and (suspected) exposure to COVID-19; Z85.038 Personal history of other malignant neoplasm of large intestine; Z90.49 Acquired absence of other specified parts of digestive tract; Z98.890 Other specified postprocedural states; Z95.5 Presence of coronary angioplasty implant and graft; Z72.89 Other problems related to lifestyle; Z88.0 Allergy status to penicillin; I25.2 Old myocardial infarction; Z79.01 Long term (current) use of anticoagulants; Z79.899 Other long term (current) drug therapy; Z79.82 Long term (current) use of aspirin; Z85.46 Personal history of malignant neoplasm of prostate; Z92.21 Personal history of antineoplastic chemotherapy
CPT/HCPCS: 36415; 71045; 80048; 80053; 82553; 83690; 83735; 83880; 84484; 85025; 85610; 85730; 93005; 94760; 96365; 96366; 96374; J0282; J0360; J2405; J3475; J7050; J7070

== ENCOUNTER 2022-01-14 13:51 | Inpatient (IN) | payer MEDICARE ==
[~2022-01-14 13:51] MED LIST changes: -Iopamidol 370 76% 100 ML VIAL ONE; -Iopamidol 370 76% 50 ML VIAL FS ONE; +Iopamidol-370 76% 500 ML 1 ML ONE
[2022-01-14 15:07] LABS: #Eosinphils 0.1 thou/uL (0.0-0.7); #Lymphocytes 0.5 thou/uL (1.20-3.40); #Monocytes 0.9 thou/uL (0.11-0.59); #Neutrophils 11.3 thou/uL (1.40-6.50); %Basophils 0.1 % (0.0-1.0); %Eosinophils 0.8 % (0.0-10.0); %Monocytes 6.8 % (0.0-10.0); %Neutrophils 88.3 % (42.0-75.0); Hemoglobin 13.1 g/dL (14.0-18.0); Mean Corpuscular HGB CONC 32.5 g/dL (32.0-36.0); Mean Corpuscular Hemoglobin 31.4 pg (27.0-31.0); Mean Corpuscular Volume 96.8 fL (78.0-98.0); Mean Platelet Volume 7.7 fL (7.4-10.4); Platelet Count 174 thou/uL (130-400); RBC Distribution Width 13.6 % (11.5-14.5); Red Blood Cell (RBC) Count 4.16 mill/uL (4.70-6.10); White Blood Cell (WBC) Count 12.8 thou/uL (4.8-10.8)
[2022-01-14 15:30] LABS: ALT (SGPT) 20 U/L (8-55); AST (SGOT) 15 U/L (5-34); Albumin 3.8 g/dL (3.4-4.8); Alkaline Phosphatase 83 U/L (40-110); Anion Gap 17 mmol/L (10-20); BUN (Urea Nitrogen) 22 mg/dL (8.4-25.7); Bilirubin, Total 0.7 mg/dL (0.2-1.2); CK (CPK) 80 U/L (30-200); Calc. Creatinine Clearance 0 mL/min (70-130); Carbon Dioxide 18 mmol/L (23-31); Chloride 109 mmol/L (98-107); Globulin 2.5 g/dL (2.4-3.5); Glucose 120 mg/dL (83-110); Potassium 3.7 mmol/L (3.5-5.1); Protein, Total 6.3 g/dL (5.8-8.1); Sodium 140 mmol/L (136-145)
[2022-01-14 16:34] LABS: Bilirubin Negative (Negative); Blood, Urine Negative (Negative); Clarity Clear (Clear); Glucose, Urine (Dipstick) Normal (Negative); Ketone, Urine Negative (Negative); Leukocyte Negative Leu/uL (Negative); Nitrite Negative (Negative); Protein, Urine (Dipstick) Negative (Neg-Trace); Specific Gravity, Urine 1.009 (1.002-1.036); Urobilinogen Normal mg/dL (Less than 2); pH, Urine 5.5 (5.0-9.0)
[2022-01-14] MEDS ORDERED: HYDROcodone/Acetaminophen 7.5/325 mg Tablet PO PRN (17:54)
[2022-01-14] MEDS ORDERED: Acetaminophen 325 MG TAB PO PRN (17:54)
[2022-01-14] MEDS ORDERED: Calcium Carbonate 500 MG ChewTAB PO PRN (17:54)
[2022-01-14] MEDS ORDERED: Senokot S 8.6-50 MG TAB PO PRN (17:54)
[2022-01-14] MEDS ORDERED: Ondansetron PF 4 MG/2 ML Vial IVP PRN (18:01)
[2022-01-14] MEDS ORDERED: hydrALAZINE 20 MG/ML VIAL SLOW IVP PRN (18:01)
[2022-01-14 18:55] LABS: Troponin I 0.018 ng/mL (< 0.028)
[2022-01-14] MEDS: Sodium Chloride 0.9% 500 ML IV SCH (19:21)
[2022-01-14 19:52] VITALS: BMI 23.0
[2022-01-14 21:48] LABS: Troponin I 0.016 ng/mL (< 0.028)
[2022-01-15] MEDS: Sodium Chloride 0.9% 500 ML IV SCH ×4 (02:16→19:52)
[2022-01-15 04:57] LABS: #Eosinphils 0.3 thou/uL (0.0-0.7); #Lymphocytes 0.9 thou/uL (1.20-3.40); #Monocytes 0.6 thou/uL (0.11-0.59); #Neutrophils 4.1 thou/uL (1.40-6.50); %Basophils 0.7 % (0.0-1.0); %Eosinophils 4.6 % (0.0-10.0); %Lymphocytes 14.6 % (21.0-51.0); %Monocytes 10.2 % (0.0-10.0); %Neutrophils 69.9 % (42.0-75.0); Mean Corpuscular Hemoglobin 31.5 pg (27.0-31.0); Mean Corpuscular Volume 95.3 fL (78.0-98.0); Mean Platelet Volume 7.7 fL (7.4-10.4); Platelet Count 180 thou/uL (130-400); RBC Distribution Width 13.8 % (11.5-14.5); Red Blood Cell (RBC) Count 3.81 mill/uL (4.70-6.10); White Blood Cell (WBC) Count 5.9 thou/uL (4.8-10.8)
[2022-01-15 05:18] LABS: Anion Gap 11 mmol/L (10-20); BUN (Urea Nitrogen) 16 mg/dL (8.4-25.7); Calc. Creatinine Clearance 51 mL/min (70-130); Calcium 8.6 mg/dL (7.8-10.44); Carbon Dioxide 25 mmol/L (23-31); Chloride 111 mmol/L (98-107); Glucose 101 mg/dL (83-110); Potassium 3.5 mmol/L (3.5-5.1); Sodium 143 mmol/L (136-145)
[2022-01-15] MEDS ORDERED: Nitroglycerin 0.4 MG TAB (25 Tab Bottle) SL PRN (08:51)
[2022-01-15] MEDS: Amiodarone 200 MG TAB PO SCH ×2 (09:17→19:55)
[2022-01-15] MEDS: Lisinopril 10 MG TAB PO SCH ×2 (09:17→19:56)
[2022-01-15 15:59] LABS: SARS-CoV-2 PCR by NAA Not Detected (NotDetected)
[2022-01-15] MEDS: Ascorbic Acid 500 mg Chewable Tablet PO SCH (19:54)
[2022-01-15] MEDS: Atorvastatin Calcium 40 MG TAB PO SCH (19:54)
[2022-01-15] MEDS: Vit A,C & E/Lutein/Minerals Tablet PO SCH (19:54)
[2022-01-15] MEDS: Magnesium Oxide 400 MG TAB PO SCH (19:55)
[2022-01-15] MEDS: Aspirin 81 mg Enteric Coated Tablet PO SCH (19:55)
[2022-01-15] MEDS: Tamsulosin HCl 0.4 MG CAP PO SCH (19:55)
[2022-01-15] MEDS: Famotidine 20 MG TAB PO SCH (19:55)
[2022-01-15] MEDS: Finasteride 5 MG TAB PO SCH (19:56)
[2022-01-15] MEDS: Amlodipine 5 MG TAB PO SCH (19:56)
[2022-01-15] MEDS: Clopidogrel Bisulfate 75 MG TAB PO SCH (19:56)
[2022-01-15] MEDS: Fluticasone Propionate Nasal Spray 16 gm Bottle NASAL SCH (19:57)
[2022-01-15] MEDS ORDERED: Amlodipine 5 MG TAB PO SCH (21:00)
[2022-01-15] MEDS ORDERED: Rivaroxaban 10 MG TAB PO SCH (21:00)
[2022-01-16 04:31] LABS: #Basophils 0.1 thou/uL (0.0-0.2); #Eosinphils 0.4 thou/uL (0.0-0.7); #Lymphocytes 1.2 thou/uL (1.20-3.40); #Monocytes 0.7 thou/uL (0.11-0.59); #Neutrophils 4.1 thou/uL (1.40-6.50); %Basophils 0.8 % (0.0-1.0); %Lymphocytes 18.2 % (21.0-51.0); %Monocytes 10.8 % (0.0-10.0); %Neutrophils 64.2 % (42.0-75.0); Hemoglobin 11.8 g/dL (14.0-18.0); Mean Corpuscular HGB CONC 33.5 g/dL (32.0-36.0); Mean Corpuscular Volume 95.6 fL (78.0-98.0); Mean Platelet Volume 7.8 fL (7.4-10.4); Platelet Count 177 thou/uL (130-400); RBC Distribution Width 13.6 % (11.5-14.5); Red Blood Cell (RBC) Count 3.68 mill/uL (4.70-6.10); White Blood Cell (WBC) Count 6.4 thou/uL (4.8-10.8)
[2022-01-16 04:55] LABS: Anion Gap 11 mmol/L (10-20); BUN (Urea Nitrogen) 15 mg/dL (8.4-25.7); Calc. Creatinine Clearance 56 mL/min (70-130); Calcium 8.4 mg/dL (7.8-10.44); Carbon Dioxide 25 mmol/L (23-31); Chloride 109 mmol/L (98-107); Glucose 89 mg/dL (83-110); Potassium 3.5 mmol/L (3.5-5.1); Sodium 141 mmol/L (136-145)
[2022-01-16] MEDS: Sodium Chloride 0.9% 500 ML IV SCH (05:32)
[2022-01-16] MEDS: Amiodarone 200 MG TAB PO SCH ×2 (08:21→20:01)
[2022-01-16] MEDS: Lisinopril 10 MG TAB PO SCH ×2 (08:21→20:02)
[2022-01-16] MEDS ORDERED: Potassium Chloride 20 MEQ TAB PO SCH (08:45)
[2022-01-16 09:05] LABS: Magnesium 1.6 mg/dL (1.6-2.6)
[2022-01-16] MEDS ORDERED: Magnesium Sulfate 4 GM in Sodium Chloride 0.9% 250 ML 250 ML IVPB SCH (09:45)
[2022-01-16] MEDS ORDERED: Magnesium Sulfate In Water 4 GM in Premix Bag 1 BAG IVPB SCH (10:00)
[2022-01-16] MEDS ORDERED: Docusate 100 MG CAP PO SCH (13:00)
[2022-01-16] MEDS ORDERED: Saccharomyces boulardii 250 MG CAP PO SCH (13:00)
[2022-01-16] MEDS: Vit A,C & E/Lutein/Minerals Tablet PO SCH (20:00)
[2022-01-16] MEDS: Clopidogrel Bisulfate 75 MG TAB PO SCH (20:00)
[2022-01-16] MEDS: Famotidine 20 MG TAB PO SCH (20:00)
[2022-01-16] MEDS: Tamsulosin HCl 0.4 MG CAP PO SCH (20:00)
[2022-01-16] MEDS: Ascorbic Acid 500 mg Chewable Tablet PO SCH (20:01)
[2022-01-16] MEDS: Atorvastatin Calcium 40 MG TAB PO SCH (20:01)
[2022-01-16] MEDS: Finasteride 5 MG TAB PO SCH (20:01)
[2022-01-16] MEDS: Aspirin 81 mg Enteric Coated Tablet PO SCH (20:02)
[2022-01-16] MEDS: Amlodipine 5 MG TAB PO SCH (20:02)
[2022-01-16] MEDS: Magnesium Oxide 400 MG TAB PO SCH (20:02)
[2022-01-16] MEDS: Fluticasone Propionate Nasal Spray 16 gm Bottle NASAL SCH (20:03)
[2022-01-16] MEDS: Docusate 100 MG CAP PO SCH (20:03)
[2022-01-17 04:59] LABS: #Eosinphils 0.3 thou/uL (0.0-0.7); #Lymphocytes 1.1 thou/uL (1.20-3.40); #Monocytes 0.6 thou/uL (0.11-0.59); #Neutrophils 3.2 thou/uL (1.40-6.50); %Basophils 0.8 % (0.0-1.0); %Eosinophils 6.3 % (0.0-10.0); %Lymphocytes 20.8 % (21.0-51.0); %Monocytes 10.8 % (0.0-10.0); %Neutrophils 61.4 % (42.0-75.0); Hemoglobin 12.5 g/dL (14.0-18.0); Mean Corpuscular HGB CONC 33.8 g/dL (32.0-36.0); Mean Corpuscular Hemoglobin 32.1 pg (27.0-31.0); Mean Corpuscular Volume 95.1 fL (78.0-98.0); Mean Platelet Volume 8.3 fL (7.4-10.4); Platelet Count 159 thou/uL (130-400); RBC Distribution Width 13.6 % (11.5-14.5); White Blood Cell (WBC) Count 5.1 thou/uL (4.8-10.8)
[2022-01-17 05:22] LABS: Anion Gap 10 mmol/L (10-20); BUN (Urea Nitrogen) 19 mg/dL (8.4-25.7); Calc. Creatinine Clearance 50 mL/min (70-130); Calcium 8.4 mg/dL (7.8-10.44); Carbon Dioxide 27 mmol/L (23-31); Chloride 106 mmol/L (98-107); Glucose 96 mg/dL (83-110); Magnesium 2.2 mg/dL (1.6-2.6); Potassium 3.6 mmol/L (3.5-5.1); Sodium 139 mmol/L (136-145)
[2022-01-17] MEDS: Lisinopril 10 MG TAB PO SCH ×2 (08:12→21:55)
[2022-01-17] MEDS: Saccharomyces boulardii 250 MG CAP PO SCH (08:12)
[2022-01-17] MEDS: Docusate 100 MG CAP PO SCH ×2 (08:12→21:55)
[2022-01-17] MEDS: Amiodarone 200 MG TAB PO SCH ×2 (08:12→21:56)
[2022-01-17] MEDS ORDERED: Polyethylene Glycol 3350 17 GM Packet PO PRN (15:51)
[2022-01-17] MEDS ORDERED: Polyethylene Glycol 3350 17 GM Packet PO SCH (16:00)
[2022-01-17] MEDS: Magnesium Oxide 400 MG TAB PO SCH (21:54)
[2022-01-17] MEDS: Vit A,C & E/Lutein/Minerals Tablet PO SCH (21:54)
[2022-01-17] MEDS: Aspirin 81 mg Enteric Coated Tablet PO SCH (21:54)
[2022-01-17] MEDS: Famotidine 20 MG TAB PO SCH (21:54)
[2022-01-17] MEDS: Ascorbic Acid 500 mg Chewable Tablet PO SCH (21:55)
[2022-01-17] MEDS: Tamsulosin HCl 0.4 MG CAP PO SCH (21:55)
[2022-01-17] MEDS: Clopidogrel Bisulfate 75 MG TAB PO SCH (21:55)
[2022-01-17] MEDS: Atorvastatin Calcium 40 MG TAB PO SCH (21:55)
[2022-01-17] MEDS: Finasteride 5 MG TAB PO SCH (21:56)
[2022-01-17] MEDS: Fluticasone Propionate Nasal Spray 16 gm Bottle NASAL SCH (21:56)
[2022-01-17] MEDS: Amlodipine 5 MG TAB PO SCH (21:56)
[2022-01-18 05:34] LABS: Anion Gap 11 mmol/L (10-20); BUN (Urea Nitrogen) 19 mg/dL (8.4-25.7); Calc. Creatinine Clearance 52 mL/min (70-130); Calcium 8.5 mg/dL (7.8-10.44); Carbon Dioxide 27 mmol/L (23-31); Chloride 107 mmol/L (98-107); Glucose 91 mg/dL (83-110); Potassium 3.6 mmol/L (3.5-5.1); Sodium 141 mmol/L (136-145)
[2022-01-18 07:40] VITALS: TEMP 98.1
[2022-01-18] MEDS: Docusate 100 MG CAP PO SCH (08:28)
[2022-01-18] MEDS: Amiodarone 200 MG TAB PO SCH (08:28)
[2022-01-18] MEDS: Lisinopril 10 MG TAB PO SCH (08:28)
[2022-01-18] MEDS: Saccharomyces boulardii 250 MG CAP PO SCH (08:33)
[2022-01-18] MEDS ORDERED: Clindamycin/D5W 900 mg/50 ml Premix Bag ONE (12:21)
[2022-01-18] MEDS ORDERED: Gentamicin 80 MG/100 ML BAG ONE (12:21)
[2022-01-18] MEDS ORDERED: Lidocaine 1% (PF) 30 ML VIAL ONE (12:21)
[2022-01-18] MEDS ORDERED: Fentanyl 100 MCG/2 ML VIAL ONE (13:30)
[2022-01-18] MEDS ORDERED: Propofol 500 MG/50 ML VIAL ONE (13:31)
[2022-01-18] MEDS ORDERED: Lidocaine 1% PF 5 ML VIAL ONE ×2 (13:36→14:01)
[2022-01-18] MEDS ORDERED: Phenylephrine 10 MG/ML VIAL ONE (13:49)
[2022-01-18] MEDS ORDERED: PROPOFOL 200 MG/20 ML VIAL ONE (14:01)
[2022-01-18] MEDS ORDERED: PROPOFOL 20 ML ONE (14:50)
[2022-01-18] MEDS ORDERED: Promethazine HCl 25 MG/ML VIAL IVPB PRN (15:20)
[2022-01-18] MEDS ORDERED: Promethazine HCl 25 MG/ML VIAL IM PRN (15:20)
[2022-01-18] MEDS ORDERED: Ondansetron HCl/PF 4 MG/2 ML Vial IVP PRN (15:20)
[2022-01-18 16:20] VITALS: BP 166/74
[2022-01-18] MEDS ORDERED: Amlodipine 5 MG TAB PO SCH (21:00)
== END 2022-01-18 18:47 | disposition home or self-care (01) | DRG 243 ==
LOC: ERS 13:51 → 2SW 17:39 → OBSVTOIN 01-16 11:40
PROVIDERS: ADMIT Family Medicine; ATTEND Internal Medicine
PROC: 0JH606Z Insertion of Pacemaker, Dual Chamber into Chest Subcutaneous Tissue and Fascia, Open Approach (ICD-10-PCS; principal; 2022-01-18)
PROC: 02HK3JZ Insertion of Pacemaker Lead into Right Ventricle, Percutaneous Approach (ICD-10-PCS; 2022-01-18)
PROC: 02H63JZ Insertion of Pacemaker Lead into Right Atrium, Percutaneous Approach (ICD-10-PCS; 2022-01-18)
DX: I49.5 Sick sinus syndrome (principal); N17.9 Acute kidney failure, unspecified; K92.1 Melena; Z20.822 Contact with and (suspected) exposure to COVID-19; I48.0 Paroxysmal atrial fibrillation; N40.0 Benign prostatic hyperplasia without lower urinary tract symptoms; E78.5 Hyperlipidemia, unspecified; N18.2 Chronic kidney disease, stage 2 (mild); E87.6 Hypokalemia; E83.42 Hypomagnesemia; I25.10 Atherosclerotic heart disease of native coronary artery without angina pectoris; D53.9 Nutritional anemia, unspecified; E86.0 Dehydration; I08.2 Rheumatic disorders of both aortic and tricuspid valves; I12.9 Hypertensive chronic kidney disease with stage 1 through stage 4 chronic kidney disease, or unspecified chronic kidney disease; Z95.5 Presence of coronary angioplasty implant and graft; Z28.21 Immunization not carried out because of patient refusal; I25.2 Old myocardial infarction; Z88.0 Allergy status to penicillin; Z79.899 Other long term (current) drug therapy; Z79.51 Long term (current) use of inhaled steroids; Z79.02 Long term (current) use of antithrombotics/antiplatelets; Z79.82 Long term (current) use of aspirin; Z85.46 Personal history of malignant neoplasm of prostate; Z98.890 Other specified postprocedural states
CPT/HCPCS: 33208; 36415; 70450; 71045; 71275; 80048; 80053; 81003; 82550; 83735; 84443; 84484; 85025; 85379; 93005; 93010; 93306; 96374; 96375; C1785; C1898; G0378; J0360; J1580; J2001; J2370; J2704; J3010; J3475; J3490; J7050; Q9967; U0003; U0005

== ENCOUNTER 2023-08-20 11:16 | Outpatient (CLI) | payer MEDICARE | END 2023-08-20 11:17 | disposition home or self-care (01) | LOC: BICRAD 11:16 | PROVIDERS: ATTEND Nurse Practitioner Family | DX: R06.02 Shortness of breath (principal) | CPT/HCPCS: 71046 ==